=== PATIENT | male | born 1990 | race Caucasian/White ===

== ENCOUNTER → 2024-02-05 07:15 | Outpatient (REF) | payer BC, SELFPAY ==
--- NOTE | 2024-02-05 15:01 | EEG.RPT ---
Electroencephalogram Report
Recording
Date of EE02/05/24
Type of EEG: Routine
Length of EEG recordin mins
Done with Video Recording: Yes
Patient Status: Outpatient
Recording Conditions: Awake, Drowsy and Asleep
Hyperventilation Performed: Yes
Photic Stimulation Performed: Yes
Report
METHODS
A 21 channel digitized electroencephalogram was performed at [facility]. The 10/20 international system of electrode placement was used. In addition to EEG, the patient was monitored for EKG. The duration of the recording was 62 minutes.
BACKGROUND
During the awake state, with the eyes closed, the background consisted of a normal amplitude, 10 Hertz posterior reactive rhythm that attenuated appropriately with eye opening. Beta activity was distributed diffusely with an anterior predominance.
There was a normal anterior-posterior voltage gradient. With eye opening the background activity changed to a low voltage mixture of alpha, beta, and occasional theta range frequencies. There were no significant asymmetries of background activity
noted.
SLEEP
Stage II sleep was obtained and consisted of symmetrical sleep spindles and vertex sharp waves.
HYPERVENTILATION
Hyperventilation resulted in diffuse slowing of the background activity without appearance of abnormal activity.
PHOTIC STIMULATION
Photic stimulation using a step-mendoza increase in photic frequency varying from 1-31 Hertz resulted in driving responses at various frequencies but no appearance of abnormal activity.
ABNORMAL EEG ACTIVITY
None
CLINICAL EVENTS
None
INTERPRETATION AND CLINICAL CORRELATION
This EEG is normal during the awake and sleep states as well as during the activation procedures of hyperventilation and photic stimulation. No seizures were noted during the recording. A normal EEG, in itself, does not rule out a diagnosis of
epilepsy. If clinical suspicion for seizure persists, a sleep-deprived and/or prolonged recording may be warranted.
== END ==
LOC: RCS 07:15
PROVIDERS: ATTENDING PHYSICIAN Student in an Organized Health Care Education/Training Program
DX: G43.109 Migraine with aura, not intractable, without status migrainosus (principal)
CPT/HCPCS: 95813

== ENCOUNTER → 2024-04-13 06:44 | Outpatient (REF) | payer BC, SELFPAY | LOC: HWRAD 06:44 | PROVIDERS: ATTENDING PHYSICIAN Internal Medicine Gastroenterology | DX: R79.89 Other specified abnormal findings of blood chemistry (principal) | CPT/HCPCS: 76700; 93975 ==